=== PATIENT | male | born 1995 | race Caucasian/White ===

== ENCOUNTER 2022-02-27 17:22 | Emergency (ER) | payer OTHER ==
[~2022-02-27] VITALS: Ht 193 cm; Wt 84.1 kg
[2022-02-27] MEDS ORDERED: FLEXERIL 1010 MG/TAB PO (20:36)
[2022-02-27 21:23] VITALS: BP 132/71; PULSE 53; TEMP 98.3
== END 2022-02-27 21:26 | disposition home or self-care (01) ==
LOC: COL.ER 17:22
DX: S46.912A Strain of unspecified muscle, fascia and tendon at shoulder and upper arm level, left arm, initial encounter (principal); S09.90XA Unspecified injury of head, initial encounter; M26.622 Arthralgia of left temporomandibular joint; M54.2 Cervicalgia; Z28.310 Unvaccinated for COVID-19; V49.40XA Driver injured in collision with unspecified motor vehicles in traffic accident, initial encounter; Y92.410 Unspecified street and highway as the place of occurrence of the external cause